=== PATIENT | female | born 1945 | race Caucasian/White ===

== ENCOUNTER 2017-02-09 22:08 | Observation (INO) | payer OTHER ==
[2017-02-09] MEDS ORDERED: ASPIRIN 81 MG CHEWABLE TAB PO ONE (22:16)
--- NOTE | 2017-02-09 22:16 | EDPHY ---
H & P - Medical/Surgical History Other PMH: PE. HTN. AntiPhosphoLipid Antibody. Anxiety - Family History Significant Family History: Other (Others in family with Factor V Lidcodi, her test was neg.). No: Heart disease (Sister with a widened aorta found incidentally on Echo done at time of her sepsis. No dissection), Lung disease - Social History Smoking Status: Never smoked Alcohol Use: None Drug Use: None Time Seen by Provider: 02/09/17 22:12 HPI/ROS: CHIEF COMPLAINT: Dizzy, nauseated, off balance, burning in chest HISTORY OF PRESENT ILLNESS: This is a 71-year-old female with a history of hypertension and PE who presents by private car with multiple complaints. She reports a burning sensation across her upper chest bilaterally, similar to what she felt when she was diagnosed with PE in May of 2016. No radiation of this pain. She is taking Xarelto but missed yesterday's dose. She took her dose just before coming to the emergency department kayleigh. She also describes dizziness with the room spinning when she moves her head or her eyes. She has nausea and feels off balance when walking. All of her symptoms began when she stood up after watching television. The onset was abrupt. She denies headache, current earache (although she had 1 earlier in the week), change in hearing, change in vision, confusion, numbness, or weakness. No syncope associated with these symptoms. All of this began an hour or two ago. She took a Xanax 30 minutes ago with no relief. Her primary care provider is in [place]. REVIEW OF SYSTEMS: A ten point review of systems was performed and is negative with the exception of the items mentioned in the HPI. Past medical history: 1. Hypertension 2. PE/anti phospholipid antibody 3. Anxiety 4. Sleep apnea Past surgical history: 1. Total hysterectomy 2. Surgery for bowel obstruction secondary to adhesions 3. Total hysterectomy 4. ORIF right arm fracture Family history: Positive for venous thromboembolism Social history: She is engaged to be and is accompanied by her fiance and her sister kayleigh. She does not use tobacco products or alcohol. General Appearance: Alert. Vital signs reviewed. Blood pressure 199/97 on arrival. Eyes: Pupils equal and round, no conjunctival injection, no discharge. Anicteric. ENT, Mouth: Mucous membranes are moist, no oropharyngeal erythema or edema. TMs normal. Neck: No lymphadenopathy, supple. Respiratory: Lungs are clear to auscultation; no wheezes, rales, or rhonchi. Cardiovascular: Regular rate and rhythm; no murmur, rub, or gallop. Gastrointestinal: Abdomen is soft and nontender, no masses or organomegaly, bowel sounds normal. Skin: Warm and dry, no rashes on exposed skin, normal color. Back: Nontender to palpation over the thoracolumbar spine. No CVAT. Extremities: No lower extremity edema, no calf tenderness or swelling. Neurological: Alert and oriented. Moving all four extremities easily and equally. Cranial nerves II through XII are examined and are intact (visual acuity not tested). Strength is 5 over 5 bilaterally with testing of major motor groups. Sensation is intact to light touch over all 4 extremities. Psychiatric: Anxious affect. (Briseyda Neely) Constitutional: Initial Vital Signs Temperature (C) 36.4 C 02/09/17 22:37 Heart Rate 61 02/09/17 22:37 Respiratory Rate 20 02/09/17 22:37 Blood Pressure 156/97 H 02/09/17 22:37 O2 Sat (%) 88 L 02/09/17 22:37 O2 Delivery Mode Nasal Cannula O2 (L/minute) 2 Allergies/Adverse Reactions: hydrochlorothiazide Allergy (Verified 02/09/17 22:30) Home Medications: Medication Instructions Recorded Amlodipine Besylate 02/09/17 Paxil 02/09/17 Xanax 02/09/17 Xarelto 02/09/17 Medical Decision Making - Diagnostics Imaging: Discussed imaging studies w/ bilingual call center representative Radiologist - Diagnostics EKG Interpretation: 12 lead EKG is interpreted in Trace master View by emergency department physician. (Briseyda Neely) Imaging Results: Imaging Impressions Chest X-Ray 02/09/17 22:17 Impression: 1. Mild cardiomegaly. Films reveiwed by me on the PACS. ARLYN (Dru Lu) ED Course/Re-evaluation: 71-year-old female with history of hypertension and PE he presents with both burning chest pressure and dizziness with nausea. The dizziness, nausea, and disequilibrium sound like vertigo. However, the chest discomfort is concerning and potential presents a greater danger. Cardiac workup is being instituted. In addition she is being given Zofran and Valium for treatment of presumed vertigo. She was re-evaluated at 10:45 p.m.. She has received Valium 2.5 mg IV and Zofran 4 mg IV. She is feeling somewhat better and is now able to move her head without experiencing worsening vertigo. She does continue with chest burning. This sensation extends across her upper chest. She does not feel short of breath. She is not hypoxic or tachycardic. Her nausea is improved and she was able to chew four aspirin. Re-evaluated at eleven PM. Still with chest pressure and burning. Dizziness and nausea have worsened over past 15 minutes. Initial troponin is normal. She has about 2 hours out from the onset of her symptoms. She tells me that she has known coronary artery disease, seen on chest scan done at the time of her PE. HEART score is four. I anticipate hospitalization and have explained this to the patient and her family. She was treated in [place] when she had her pulmonary embolism and was evaluated in [place] last week. At the time of that evaluation a repeat chest CT was requested (she has paperwork confirming this). Given her history of PE and tonight's chest discomfort, CT angiogram will be performed and she will be provided with a copy. She missed 1 dose of Xarelto yesterday. Because of her vertigo I am also doing a head CT. She has not experienced vertigo in the past. As her vertigo has resurfaced, she is being given Ativan 1 mg IV. (Briseyda Neely) Care assumed at 2300 Case d/w Dr. Chin Neely's note reveiwed, agree with above except the clarifications that the Ativan dose was 0.5 mg as patient already took a Xana and Valium 2.5 mg IV was given. Patient interviewed and examined. Additional points of clarification: Onset of the Vertog, off balance and burning chest discomfort with a single episode of loose stool at 2000, 2 hours [employer]LEGR[employer]. Home treqatment was taking a Xarelto, her BP Medication - but no antacids or ASA (given the later here). Sx of burning on anterior upper half of bilateral chest without radiation ot back or jaw. No diaphoresis with this. Sx continue, though better here. The vertigo was spinning, positional with profound nausea without emesis and she is able to walk. CV Risk factors: Obsity, HTN, known coronary calcifications on CT from May PE risk factors: Obesity, recent flight to [place], prior hx of PE, Antiphospholipid. Though two of her sisters test + for Factor V Leiden, she does not. Though is on Xarelto, did miss a dose yesterday. Risk Factors for aortic dissection: Sister with mild Aortic enlargement that is being monitored. HTN Heart Score, minimum as a 4: Hx - 1 EKG - 0 Age = 2 Risk Factors = 1 Troponin = pending, 1st one negative On Exam: Tends to keep her eyes closed, and not move her head much. Barnay is ++ with nystagmus most pronounced with head to the right, fast component to the left. Unable to tolerate more than 10 secs, so never did extinguish. This exam done after the initial Valium and Zofran. No pitting edema. No cords, nor calf tenderness. EKG #2 - read by me: Neg for ischemia, QTc 440. See trace master. No change from earlier. COURSE: Given a total dose of 0.5 mg of IV Ativan as well as 25 mg of p.o. meclizine then attempt to allow her to tolerate being supine for the CT scans. Management also included 1 inch nitropaste. Overtime her nausea improved as well as vertigo and her blood pressure likewise improved. CT scan of head. Interpreted by radiologist. Films reviewed by me. No acute changes. 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 CT of Chest with IV Contrast. Arterial study Interpreted by Radiologist and discussed with same. Films reviewed by me on the PACS. Findings as follows : Negative for PE, pneumonia, pneumothorax. These findings were shared with the patient. I also discussed with her the need for admission to the hospital for observation status for further subsequent troponin values and a consideration of a stress test for tomorrow, to further evaluate coronary disease status. It appears on the workup and the clinical exam that she is experiencing peripheral vertigo. Arrange is made for transfer after discussing the case with Dr. Veronica ago with the hospitalist team for admission on observation status to the hospital, telemetry floor] (Dru Lu) Differential Diagnosis: Chest pain including but not limited to myocardial ischemia, pulmonary embolus, chest wall pain, pleural inflammation and pulmonary infectious causes. Shortness of breath including but not limited to pulmonary infectious process, COPD, asthma, pulmonary embolus and congestive heart failure. Vertigo including but not limited to peripheral causes such as benign positional vertigo, Meniere's disease, viral labyrinthitis and central causes such as CVA, and tumor. (Briseyda Neely) Care Turn Over: Her care is transferred to Dr. Lu at 11:00 p.m.. (Briseyda Neely) - Data Points Laboratory Results: Laboratory Results 02/09/17 22:14 02/09/17 22:14 02/09/17 02/09/17 02/09/17 22:14 22:14 22:14 WBC 6.47 10^3/uL 10^3/uL (3.80-9.50) RBC 4.46 10^6/uL 10^6/uL (4.18-5.33) Hgb 12.4 g/dL L g/dL (12.6-16.3) Hct 37.8 % L % (38.0-47.0) MCV 84.8 fL fL (81.5-99.8) MCH 27.8 pg L pg (27.9-34.1) MCHC 32.8 g/dL g/dL (32.4-36.7) RDW 13.3 % % (11.5-15.2) Plt Count 241 10^3/uL 10^3/uL (150-400) MPV 9.5 fL fL (8.7-11.7) Neut % (Auto) 55.9 % % (39.3-74.2) Lymph % (Auto) 30.8 % % (15.0-45.0) [place] % (Auto) 9.1 % % (4.5-13.0) Eos % (Auto) 2.9 % % (0.6-7.6) Baso % (Auto) 1.1 % % (0.3-1.7) Nucleat RBC Rel Count 0.0 % % (0.0-0.2) Absolute Neuts (auto) 3.62 10^3/uL 10^3/uL (1.70-6.50) Absolute Lymphs (auto) 1.99 10^3/uL 10^3/uL (1.00-3.00) Absolute Monos (auto) 0.59 10^3/uL 10^3/uL (0.30-0.80) Absolute Eos (auto) 0.19 10^3/uL 10^3/uL (0.03-0.40) Absolute Basos (auto) 0.07 10^3/uL 10^3/uL (0.02-0.10) Absolute Nucleated RBC 0.00 10^3/uL 10^3/uL (0-0.01) Immature Gran % 0.2 % % (0.0-1.1) Immature Gran # 0.01 10^3/uL 10^3/uL (0.00-0.10) PT 14.7 SEC SEC (12.0-15.0) INR 1.18 H (0.83-1.16) APTT 44.4 SEC H SEC (23.0-38.0) Sodium 139 mEq/L mEq/L (134-144) Potassium 4.0 mEq/L mEq/L (3.5-5.2) Chloride 103 mEq/L mEq/L (97-110) Carbon Dioxide 23 mEq/l mEq/l (22-31) Anion Gap 13 mEq/L mEq/L (8-16) BUN 19 mg/dL mg/dL (7-23) Creatinine 0.9 mg/dL mg/dL (0.6-1.0) Estimated GFR > 60 Glucose 110 mg/dL H mg/dL (70-100) Calcium 9.4 mg/dL mg/dL (8.5-10.4) Troponin I < 0.012 ng/mL ng/mL (0.000-0.034) Medications Given: Discontinued Medications Aspirin (Aspirin) 324 mg PO EDNOW ONE Stop: 02/09/17 22:17 Last Admin: 02/09/17 22:44 Dose: 324 mg Diazepam (Valium Injection) 2.5 mg IVP EDNOW ONE Stop: 02/09/17 22:26 Last Admin: 02/09/17 22:44 Dose: 2.5 mg Lorazepam (Ativan Injection) 0.25 mg IVP EDNOW ONE Stop: 02/09/17 23:11 Last Admin: 02/09/17 23:28 Dose: 0.25 mg Lorazepam (Ativan 1mg/Ml Iv Syr) 0.25 mg IV ONCE ONE Stop: 02/09/17 23:39 Last Admin: 02/10/17 00:52 Dose: Not Given Lorazepam (Ativan Injection) 0.25 mg IVP EDNOW ONE Stop: 02/09/17 23:45 Last Admin: 02/09/17 23:46 Dose: 0.25 mg Meclizine HCl (Meclizine Hcl) 25 mg PO ONCE ONE Stop: 02/09/17 23:34 Last Admin: 02/09/17 23:59 Dose: 25 mg Nitroglycerin (Nitro-Bid 2%) 1 inch TP EDNOW ONE Stop: 02/10/17 00:16 Last Admin: 02/10/17 00:58 Dose: 1 inch Ondansetron HCl (Zofran) 4 mg IVP EDNOW ONE Stop: 02/09/17 22:26 Last Admin: 02/09/17 22:45 Dose: 4 mg Ondansetron HCl (Zofran) 4 mg IVP ONCE ONE Stop: 02/09/17 23:39 Last Admin: 02/09/17 23:41 Dose: 4 mg Departure - Departure Disposition: [facility] Inpatient Acute Clinical Impression: Vertigo Chest pain Qualifiers: Chest pain type: unspecified Qualified Code(s): R07.9 - Chest pain, unspecified Condition: Fair
[2017-02-09] MEDS ORDERED: DIAZEPAM 10 MG/2 ML SYR ONE (22:24)
[2017-02-09] MEDS ORDERED: ONDANSETRON 4 MG/2 ML VIAL ONE (22:24)
[2017-02-09] MEDS ORDERED: DIAZEPAM 10 MG/2 ML SYR IVP ONE (22:25)
[2017-02-09] MEDS ORDERED: ONDANSETRON 4 MG/2 ML VIAL IVP ONE ×2 (22:25→23:38)
--- NOTE | 2017-02-09 22:28 | CPEKG ---
Heart Rate: 63 RR Interval: 952 P-R Interval: 176 QRSD Interval: 94 QT Interval: 436 QTC Interval: 447 P [place]: 44 QRS [place]: -4 T Wave [place]: 25 EKG Severity - NORMAL ECG - EKG Impression: SINUS RHYTHM Electronically Signed By: Dru Lu 10-Feb-2017 00:43:42
[2017-02-09 22:30] LABS: % IMMATURE GRANULYOCYTES 0.2 % (0.0-1.1); ABSOLUTE IMMATURE GRANULOCYTES 0.01 10^3/uL (0.00-0.10); ADD DIFF? NO; ADD MORPH? NO; ADD SCAN? NO; ATYPICAL LYMPHOCYTE FLAG 0 (0-99); FRAGMENT RBC FLAG 0 (0-99); HEMATOCRIT 37.8 % (38.0-47.0); HEMOGLOBIN 12.4 g/dL (12.6-16.3); LEFT SHIFT FLG 0 (0-99); LIPEMIA HEMOLYSIS FLAG 80 (0-99); MEAN CELL HEMOGLOBIN 27.8 pg (27.9-34.1); MEAN CELL HEMOGLOBIN CONCENTR. 32.8 g/dL (32.4-36.7); MEAN CELL VOLUME 84.8 fL (81.5-99.8); MEAN PLATELET VOLUME 9.5 fL (8.7-11.7); PLATELET CLUMPS FLAG 0 (0-99); PLATELET COUNT 241 10^3/uL (150-400); RED BLOOD CELL COUNT 4.46 10^6/uL (4.18-5.33); RED CELL DISTRIBUTION WIDTH 13.3 % (11.5-15.2)
[2017-02-09 22:40] LABS: INR 1.18 (0.83-1.16); PROTIME(PATIENT) 14.7 SEC (12.0-15.0)
[2017-02-09 22:41] LABS: ANION GAP 13 mEq/L (8-16); APTT 44.4 SEC (23.0-38.0); CALCIUM 9.4 mg/dL (8.5-10.4); CARBON DIOXIDE 23 mEq/l (22-31); CHLORIDE 103 mEq/L (97-110); CREATININE 0.9 mg/dL (0.6-1.0); GLOMERULAR FILTRATION RATE > 60; GLUCOSE 110 mg/dL (70-100); SODIUM 139 mEq/L (134-144)
[2017-02-09 22:54] LABS: TROPONIN I < 0.012 ng/mL (0.000-0.034)
[2017-02-09] MEDS ORDERED: LORazepam 2 MG/ML INJ IVP ONE ×2 (23:10→23:44)
[2017-02-09] MEDS ORDERED: LORazepam 2 MG/ML INJ ONE (23:13)
[2017-02-09] MEDS ORDERED: IOPAMIDOL (ISOVUE 370) 100 ML BTL IV ONE (23:14)
[2017-02-09] MEDS ORDERED: MECLIZINE HCL 25 MG TAB PO ONE (23:33)
[2017-02-09] MEDS ORDERED: *PHM DO NOT USE-LORazepam 1 MG/ML IV NEWBORN SYR IV ONE (23:38)
[2017-02-10] MEDS ORDERED: NITROGLYCERIN 2% 1 GM PACKET TP ONE (00:15)
--- NOTE | 2017-02-10 00:27 | CPEKG ---
Heart Rate: 55 RR Interval: 1091 P-R Interval: 156 QRSD Interval: 94 QT Interval: 460 QTC Interval: 440 P [place]: 46 QRS [place]: 1 T Wave [place]: 23 EKG Severity - NORMAL ECG - EKG Impression: SINUS RHYTHM Electronically Signed By: Dru Lu 10-Feb-2017 00:43:29
[2017-02-10] MEDS ORDERED: HYDROCODONE/APAP 5/325 TAB PO PRN (03:21)
[2017-02-10] MEDS ORDERED: LORazepam 2 MG/ML INJ IVP PRN (03:21)
[2017-02-10] MEDS ORDERED: ONDANSETRON 4 MG/2 ML VIAL IVP PRN (03:21)
[2017-02-10] MEDS ORDERED: ONDANSETRON DISINTEGRATING 4 MG TAB PO PRN (03:21)
[2017-02-10] MEDS ORDERED: ACETAMINOPHEN 325 MG TAB PO PRN (03:21)
[2017-02-10] MEDS ORDERED: PROMETHAZINE HCL 25 MG/ML INJ IVP PRN (03:21)
[2017-02-10] MEDS ORDERED: diphenhydrAMINE 25 MG CAP PO PRN (03:21)
[2017-02-10] MEDS ORDERED: MECLIZINE HCL 25 MG TAB PO PRN (03:27)
[2017-02-10] MEDS ORDERED: NS 1,000 ML IV SCH (03:30)
[2017-02-10 05:45] LABS: % IMMATURE GRANULYOCYTES 0.5 % (0.0-1.1); ABSOLUTE IMMATURE GRANULOCYTES 0.03 10^3/uL (0.00-0.10); ADD DIFF? NO; ADD MORPH? NO; ADD SCAN? NO; ATYPICAL LYMPHOCYTE FLAG 0 (0-99); FRAGMENT RBC FLAG 0 (0-99); HEMATOCRIT 36.5 % (38.0-47.0); HEMOGLOBIN 11.9 g/dL (12.6-16.3); LEFT SHIFT FLG 0 (0-99); LIPEMIA HEMOLYSIS FLAG 80 (0-99); MEAN CELL HEMOGLOBIN 28.6 pg (27.9-34.1); MEAN CELL HEMOGLOBIN CONCENTR. 32.6 g/dL (32.4-36.7); MEAN CELL VOLUME 87.7 fL (81.5-99.8); MEAN PLATELET VOLUME 10.3 fL (8.7-11.7); PLATELET CLUMPS FLAG 0 (0-99); PLATELET COUNT 223 10^3/uL (150-400); RED BLOOD CELL COUNT 4.16 10^6/uL (4.18-5.33); RED CELL DISTRIBUTION WIDTH 13.2 % (11.5-15.2)
[2017-02-10 05:59] LABS: ANION GAP 9 mEq/L (8-16); CALCIUM 9.3 mg/dL (8.5-10.4); CARBON DIOXIDE 24 mEq/l (22-31); CHLORIDE 104 mEq/L (97-110); CREATININE 0.9 mg/dL (0.6-1.0); GLOMERULAR FILTRATION RATE > 60; GLUCOSE 111 mg/dL (70-100); POTASSIUM 4.7 mEq/L (3.5-5.2); SODIUM 137 mEq/L (134-144)
[2017-02-10 06:09] LABS: TROPONIN I < 0.012 ng/mL (0.000-0.034)
--- NOTE | 2017-02-10 06:44 | GHP ---
[f rep st] HISTORY AND PHYSICAL DATE OF ADMISSION: 02/10/2017 IDENTIFICATION: The patient received anxiolytics and sedation prior to her transfer to [facility] still remains quite somnolent. She is able to open her eyes and answer a few yes/no questions, but for the most part falls back to sleep. Remainder of information obtained by discussion from the ED provider and review of EMR. CHIEF COMPLAINT: Vertigo, chest pain and nausea. HISTORY OF PRESENT ILLNESS: This is a 71-year-old female with past medical history listed as hyperte nsion, obesity, history of PE on Xarelto, obstructive sleep apnea, depression, anxiety, who presents to the emergency department at [facility] with complaint of 2 hour onset of severe vertigo with associated n ausea, no vomiting, and bilateral chest burning pain. The patient with a history of PE in June 11, while she was visiting her daughter in [place], [place]. She was diagnosed with a PE and kline d evaluation completed at [facility] secondary to a family history of factor V Leiden in 2 of her sisters. The patient was subsequently diagnosed with antiphospholipid antibody syndrome and has been on Xarel to since May. The patient reported that her symptoms all occurred abruptly at home. The patient stated to the emergency department that she was sitting watching TV, in her normal state of health u ntil she went to stand up and developed sudden vertigo, nausea, dizziness, and bilateral chest burnin g sensation. The patient was concerned that she had a recurrence of PE. She did admit to forgetting a dose of Xarelto from the morning and took it prior to coming to the emergency department. The pat idris had reported her dizziness was more vertiginous with spinning sensation when she moved her head or her eyes in any position. She had some difficulty with balance but no reported falls or head inju ry. No reported fevers, chills or other acute symptoms. The patient did note that she had ear ache approximately 1 week ago that was resolved. The patient attempted to take a dose of Xanax, dose unkn own, prior to coming to the emergency department as she did not obtain any relief. REVIEW OF SYSTEMS: Unable to obtain, see HPI. The patient to somnolent. She does report that she h as not had any chest pain since arrival and denies any currently. She has no shortness of breath com plaints. She does report that she has chronic bilateral lower extremity edema, that is at baseline. PAST MEDICAL HISTORY: Significant for hypertension, APS, history of PE, anxiety, sleep apnea, but shahbaz sanchez states she is not on BiPAP or oxygen at home. Coronary calcifications noted on previous imagin g. Obesity with a BMI of 40. History of small bowel obstruction. PAST SURGICAL HISTORY: Hysterectomy and ex lap for lysis of adhesions. FAMILY HISTORY: The sister's with history of factor V Leiden and thromboembolism. One sister additio fabiana with aortic dissection and hypertension in the family. SOCIAL HISTORY: The patient is engaged. She does not smoke, drink or do drugs. CODE STATUS: Unable to verify with the patient as she is quite somnolent. At this time she will rem ain a full code. PHYSICAL EXAMINATION: VITAL SIGNS: In the emergency department blood pressure 132/88, respiratory r ate 12, heart rate 66, O2 98% on 2 L by nasal cannula. Vitals on the floor: Blood pressure 184/88, heart rate 62, respiratory rate 18, O2 sat 96% 2 L nasal cannula. Temperature 36.4. GENERAL: In no acute distress. Morbidly obese elderly female, who is lying asleep in bed. She is a little bit dif ficult to arouse and quite somnolent and sedated, but she does open her eyes and quickly returns back to sleep. HEENT: Head normocephalic, atraumatic. Eyes: No apparent scleral icterus or conjunctiva l injection on limited exam secondary to patient's somnolence. Mucous membranes appear slightly dry. No nasal drainage. Nasal cannula in place. NECK: Supple. Trachea midline. CV: Regular rate and rhythm. Slightly bradycardic and slightly distant heart sounds, likely secondary to body habitus. N o murmurs, rubs or gallops are appreciated. RESPIRATORY: The patient is snoring, but good air movem ent diffusely on the anterior and lateral lung padilla. No wheezes, rales or rhonchi appreciated. AB DOMEN: Obese, soft, nontender to palpation. No rebound, guarding or masses apparent. : No Brooke i n place. No apparent suprapubic tenderness to palpation. MUSCULOSKELETAL: The patient is able to mo ve her extremities but difficulty following some commands secondary to somnolence. NEURO: Grossly n onfocal, no facial drooping. Limited again secondary to sedation. LABORATORY DATA: WBC 6.47, H and H 12.4/37.8. MCV 84.8. Platelet count 241, no bands. PT 14.7, IN R 1.18, PTT 44.4. Sodium 139, potassium 4.0, chloride 103, CO2 23, BUN 19, creatinine 0.9, GFR great er than 60. Glucose 110. Calcium 9.4. Troponin less than 0.017. Chest x-ray imaging reports reviewed by myself, showing mild cardiomegaly, moderate sclerotic calcifi cation on the aortic arch. CTA of the chest and CT head results were reviewed with ED provider prior to transfer, dictation is n ot yet available, but ED provider did speak with the radiologist and reported no PE or acute chest fi ndings. CT head did show an old basal ganglia infarct but nothing acute. EKG reviewed by myself showing sinus rhythm in 60s, QTC 447, no acute ST changes. ASSESSMENT/PLAN: A 71-year-old female who presents with abrupt onset of vertigo, nausea and bilatera l chest pain. 1. Vertigo. Differential diagnosis including viral labyrinthitis, versus less likely Meniere's vers us less likely acute cerebrovascular accident. CT negative for any evidence of large acute cerebrova scular accident or mass. At this time difficult to reassess as the patient is quite sedated. PT/OT will be ordered and will try to mobilize the patient for assessment in the morning. 2. Chest pain. Reported as bilateral burning and tightness, similar to the patient's symptoms for p ulmonary embolus. CT angio was negative for any evidence of acute pulmonary embolus. She is at elev ated risk. Will plan to continue Xarelto. The patient received a dose prior to arrival to the emerg ency department. 3. Chest pain. Differential diagnosis is possibly anxiety versus increased stress with the vertigo versus less likely acute coronary syndrome (ACS) versus an acute respiratory issue, although chest x- ray and CT are clear. Supportive care will be given. The patient denies any chest pain at the time of interview. Repeat EKG and repeat cardiac enzymes have been ordered. The patient with significant vertigo. Heart score is approximately 3 on my evaluation. Will continue to monitor the patient on telemetry and further consider stress testing inpatient versus outpatient basis, once the patient's v ertigo symptoms have resolved. 4. Benign essential hypertension. The patient with some elevated blood pressures. Will plan to res ume her home medications once we can clarify dosing. 5. History of phospholipid, as above Xarelto. 6. Depression/anxiety. The patient can resume her home medications when she can tolerate oral intak e. The patient is currently on Paxil and Xanax. 7. Obstructive sleep apnea. The patient reports she completed a study but does not use any oxygen o r CPAP at home. 8. Morbid obesity, body mass index greater than 40. Mobilization and life style modifications will be recommended. 9. Lower extremity edema. The patient reports this is chronic in nature. There have been no acute changes. The patient denies any lower extremity tenderness to palpation but again is somnolent but w ill require reassessment. 10. Fluid/electrolyte/nutrition. Continue with IV fluids overnight. Electrolyte replacement p.r.n. Advance diet once patient's mentation improves. 11. Prophylaxis: Sequential compression devices and Lovenox. 12. DISPOSITION: The patient admitted to PCU for close cardiac monitoring. The patient admitted to observation pending further evaluation. /[id number]/MODL
[2017-02-10 14:59] VITALS: BP 134/70; PULSE 64; RESP 12; TEMP 97.6; O2SAT 94
--- NOTE | 2017-02-10 21:17 | GDS ---
[f rep st] DISCHARGE SUMMARY DISCHARGE DIAGNOSES: Include. 1. Vertigo thought secondary to Meniere. 2. Anxiety. 3. History of pulmonary embolism. 4. Antiphospholipid antibody syndrome. HISTORY OF PRESENT ILLNESS: A 71-year-old female undergoing measurable stress related to an upcoming wedding, who presents with complaints of tinnitus and dizziness. For details of patient's initial p resentation, please see the history and physical dated 02/09/2017. CONSULTATIVE SERVICES: None. PROCEDURES: On 02/09/2017, patient had a CT of the head, returned negative for any acute finding. O n 02/09/2017, patient had a CTA of the chest, that showed no acute thromboembolic disease or intra c hronic pathology. HOSPITAL COURSE: Acute vertigo. Patient had tinnitus of the right ear and vertigo with movement. S ymptoms consistent with Meniere. Patient was treated with benzodiazepine, promethazine and meclizine during her stay. She did have some improvement in her symptoms. Apparently, patient has had a bad reaction to hydrochlorothiazide in the past. The patient was hydrated, said unable to keep oral inta ke down. She is being discharged on p.r.n. low-dose Ativan for nausea and anxiety. Meclizine twice daily as well as Zofran p.r.n. for nausea. We have requested that she seek PCP followup on Tuesday, w dennise is only 3 days from disposition for her initial followup of her Meniere symptoms, gait stability and nausea symptoms. MEDICATIONS AT THE TIME OF TRANSFER: Please reference med rec printed on 02/10/2017. FOLLOWUP APPOINTMENTS: Include with her PCP in [place] for her first post Meniere followup. PENDING STUDIES AT THE TIME OF THIS DICTATION: None. TIME SPENT: I spent greater than 30 minutes in the planning and coordination of this discharge. /[id number]/MODL
--- NOTE | 2017-02-11 09:19 | ASDISCHSUM ---
Discharge Information Plan Status:Home with No Needs Medically Cleared to Leave:02/10/2017 Discharge Date:02/10/2017 06:00 PM CM D/C Disposition:Home, Routine, Self-Care ADT D/C Disposition:Home, Routine, Self-Care Projected Discharge Date:02/10/2017 12:00 AM Transportation at D/C: Discharge Delay Reason: Follow-Up Date:02/10/2017 12:00 AM Discharge Slot: Final Diagnosis: Placement Information Patient Contact Information Contact Name:CHEL Relationship:Sister Address: Work Phone: City: [facility] Phone: State/Zip Code: Email: Financial Information Financial Class: Primary Plan Desc:MEDICARE OUTPATIENT Primary Plan Number:[id number] Secondary Plan Desc:[employer] Secondary Plan Number:[id number] Assessment Information Intervention Information Intervention Type:*ESPAÑA-Signed Date of Service:02/10/2017 09:19 AM Patient Type:Observation Staff Member:Rosalia Danielson Hours: Discipline: Severity: Comment:
== END 2017-02-10 18:00 | disposition home or self-care (01) ==
LOC: CED 22:08 → CEDHOLD 02-10 01:48 → F2W 02-10 03:14
PROVIDERS: ADMIT Family Medicine; ATTEND Hospitalist
DX: H81.01 Meniere's disease, right ear (principal); D68.61 Antiphospholipid syndrome; F41.8 Other specified anxiety disorders; I10 Essential (primary) hypertension; E66.9 Obesity, unspecified; G47.33 Obstructive sleep apnea (adult) (pediatric); Z86.711 Personal history of pulmonary embolism; Z79.01 Long term (current) use of anticoagulants
CPT/HCPCS: 70450; 71010; 71275; 93005; G0378; J2060; J2405; Q9967; 80048-PO; 84484-PO; 85025-PO; 85610-PO; 85730-PO; 96374